=== PATIENT | female | born 1995 | race Caucasian/White ===

== ENCOUNTER 2018-03-18 00:58 | Day surgery (SDC) | payer OTHER ==
[2018-03-18 01:30] VITALS: BP 119/67; TEMP 99; BMI 35.6
[2018-03-18] MEDS ORDERED: Morphine 4 MG/ML VIAL SLOW IVP ONE (01:58)
[2018-03-18] MEDS ORDERED: HYDROcodone/Acetaminophen 5/325 mg Tablet PO PRN (02:10)
[2018-03-18 02:18] LABS: Bilirubin Negative (Negative); Blood, Urine Negative (Negative); Clarity CLEAR (Clear); Glucose, Urine (Dipstick) Negative (Negative); Leukocyte Negative (Negative); Nitrite Negative (Negative); Protein, Urine (Dipstick) Negative (Neg-Trace); Specific Gravity, Urine 1.006 (1.002-1.036); Urobilinogen 0.2 mg/dL (0.2-1.0); pH, Urine 6.5 (5.0-9.0)
--- NOTE | 2018-03-18 02:22 | PDOC.FPROB ---
FMR OB H&P: HPI - History of Present Illness Chief Complaint: LLQ pain History of Present Illness: Pt is 22 yo F @ 34.3 by 6.3 wk sono presenting with sharp pain in LLQ. Pt denies LOF, vaginal bleeding, or contractions, and states baby is moving well. Pain started 1 wk ago and comes and goes, never lasted more than 5 minutes. This pain has now lasted a few hours. Pt states pain is severe, 8-9/10. It is cramping /intermittent, radiates to left flank. She has not tried taking any medicines to relieve the pain. She saw her doctor earlier this week and he told her if the pain lasted to go to the hospital. FMR OB H&P: Current - Care : 2 Para: 1001 Gestational age: 34.3 wks Due date: 04/26/18 Dating Criteria: 6.3 wk sono - OB Labs Blood type: O RH: positive Antibody Screen: negative HIV: negative RPR: negative HepBsAg: negative Rubella: non-immune GBS: unknown H&H: 12.5/35.7 FMR OB H&P: History - Past Medical History PMH: asthma - OB History OB History: BV with this , s/p treatment Gestation DM - Surgical History Sx History: none - Social History Social History: Denies using tobacco, alcohol, or drugs. - Family History Family History: cancer in mother, unknown type FMR OB H&P: Medications - Current Home Medications: Medication Instructions Recorded Confirmed Type Vits96/Iron Fum/Folic 1 tablet PO DAILY 09/26/15 03/18/18 History [ Tablet] Cephalexin [Keflex] 500 mg PO BID #14 capsule 03/18/18 Rx HYDROcodone Bit/APAP 5/325 [Bonesteel 1 tab PO Q4HR PRN #15 tab 03/18/18 Rx 5/325] HYDROcodone Bit/APAP 5/325 [Bonesteel] 1 tab PO Q4H PRN #15 tab 03/18/18 Rx metFORMIN HCl 500 mg PO BID 03/18/18 03/18/18 History Allergies/Adverse Reactions: Allergies Allergy/AdvReac Type Severity Reaction Status Date / Time No Known Drug Allergies Allergy Verified 09/26/15 19:23 FMR OB H&P: ROS - Review of Systems General: denies: fever/chills, weight/appetite/sleep changes Eyes: denies: eye pain, vision changes ENT: denies: nasal congestion, rhinorrhea, sinus pain/pressure, ear pain, sore throat Cardiovascular: denies: chest pain, palpitation, edema Respiratory: reports: shortness of breath. denies: cough, congestion Gastrointestinal: reports: abdominal pain (LLQ), cramping. denies: bloating, nausea, vomiting, diarrhea, constipation, bright red blood Genitourinary (Female): reports: vaginal mass/sore (pelvic pain for past few months). denies: dysuria, hematuria, vaginal discharge, vaginal pain, vaginal bleeding Neurologic: denies: numbness, weakness Integumentary: denies: rash FMR OB H&P: Vital Signs - Maternal Vital signs: Vital Signs - First Documented Temp Pulse Resp BP 99.0 F 122 H 22 H 119/67 03/18/18 01:18 03/18/18 01:18 03/18/18 01:18 03/18/18 01:18 - Heart Tones Baseline: 135 Variability: moderate Acceleration: present Deceleration: absent Category: category 1 [place] contractions every: none FMR OB H&P: Physical Exam - Physical Exam General: NAD, awake, alert and oriented HEENT: normocephalic and atraumatic, PERRLA, MMM Neck: supple, no LAD Heart: RRR, normal S1/S2, no murmurs/rubs/gallops, pulses present, no edema General: CTAB, no respiratory distress, good air movement, no rales/rhonchi, no wheezing Abdomen: soft, gravid, bowel sound present, other (TTP in LLQ, + flank pain on left side) Musculoskeletal: pulses present Neurological: cranial nerves II through XII intact, strength +5 Skin: no rash, good tugor, capillary refill <2 seconds Psychiatric: intact recent and remote memory, good judgement and insight, normal mood and affect - Pelvic Exam Vulva: normal hair distribution FMR OB H&P: Results - Imaging Imaging: US kidneys shows hydronephrosis, R> L No urolithiasis visualized US Pelvic, transabdominal and transvaginal -Unable to visualize ovaries -No abruption seen FMR OB H&P: A/P - Problem List (1) Abdominal pain Status: Acute Code(s): R10.9 - UNSPECIFIED ABDOMINAL PAIN (2) related condition in third trimester Status: Acute Code(s): O26.93 - RELATED CONDITIONS, UNSPECIFIED, THIRD TRIMESTER (3) Gestational diabetes mellitus Status: Acute Code(s): O24.419 - GESTATIONAL DIABETES MELLITUS IN , UNSP CONTROL Discussion: Date/Time: 03/18/18221 Pt is 22 yo F @ 34.3 by 6.3 wk sono presenting with abdominal pain. #LLQ Abdominal pain in 3rd trimester -US showed hydronephrosis bilaterally, R>L. No urolithiasis visualized. No ovaries visualized on US. UA negative. -Her pain started last week, so although we were unable to visualize her ovaries this is probably not an ovarian torsion. - Presentation was similar to that of a kidney stone with LLQ pain and flank pain, but UA was negative and no stones were seen on US. Pt has no history of urolithiasis, and did not have nausea of vomiting with the pain. Does have moderate hydronephrosis, which may be physiologic with her . Her pain is resolved at this time with Bonesteel 5 mg. -Her pain is most likely round ligament pain. Will send home today with Keflex for possible urolithiasis and Bonesteel as needed for pain control. Instructed to stay adequately hydrated and follow up at [facility]. #GDM -Continue metformin #sIUP -FHTs reactive and reassuring at this time. Cat 1 FHTs -Follow up at Clinic for routine care. Yuki English, PGY-1 This H&P was discussed with Dr. Bhatt who agree with the above documentation and plan. Attending Addendum - Attending Addendum Date/Time: 03/18/18 7145 I personally evaluated the patient and discussed the management with Dr. English I agree with the History, Examination, Assessment and Plan documented above with any addition or exceptions noted below. 22 yo F @ 34.3 by 6.3 wk sono presenting for LLQ pain. Pain has been ongoing for several weeks but has had an acute worsening over the past few hours. She denies fevers, h/o trauma, vaginal bleeding, dysuria, abnormal vaginal discharge, diarrhea or constipation. On my examination she was well appearing, did not seem to be in significant pain (examined prior to norco administration) . FHTs 150s/moderate variability/accels present/no decels. No contractions. Abdomen is soft/nontender/no rebound or guarding. No CVA tenderness. Given mild left hydronephrosis and description of patient writhing in pain on presentation, nephrolithiasis would be high on differential. Suspect the mild left hydronephrosis is physiologic due to uterus but will treat for nephrolithiasis given clinical presentation. Pt is hydrating and tolerating PO so do not feel inpatient observation is necessary at this time. Strict precautions were reviewed. Has followup at [facility] this week.
[2018-03-18] MEDS ORDERED: Fentanyl 100 MCG/2 ML VIAL SLOW IVP ONE (05:20)
[2018-03-18] MEDS ORDERED: Melatonin 3 MG TAB PO PRN (05:21)
--- NOTE | 2018-03-18 07:58 | ULT ---
PRELIMINARY REPORT/[facility]/EMERGENTY AFTER-HOURS PROCEDURE US Retroperitoneal Complete CLINICAL HISTORY: 22 years old, female; Left lower quadrant (llq) abd pain, 34 weeks TECHNIQUE: Real-time ultrasound of the retroperitoneum (complete) with image documentation. COMPARISON: No relevant prior studies available. FINDINGS: The right kidney measures 13.4 cm longitudinally. The left kidney measures 11.6 cm longitudinally. Normal renal cortical echogenicity. Moderate right hydronephrosis. Mild left hydronephrosis. No calcified renal stones. No perinephric fluid collections. Prevoid bladder volume is 46 cc. Normal bladder wall thickness. IMPRESSION: Moderate right hydronephrosis. Mild left hydronephrosis. Thank you for allowing us to participate in the care of your patient. Dictated and Authenticated by: Stefan Marks MD 03/18/2018 3:46 AM Central Time ([place] & [place]) RENAL SONOGRAM: Date: 03-18-18 Performed on emergency basis at 0220 hours. History: Left flank pain. 34-week . FINDINGS: I agree with the preliminary report by Dr. Marks from [facility]. Moderate right hydronephr osis. Mild left hydronephrosis. No shadowing stones are visible. Code QA POS: [facility]
--- NOTE | 2018-03-18 08:03 | ULT ---
PRELIMINARY REPORT/[facility]/EMERGENTY AFTER-HOURS PROCEDURE US Uterus, Limited CLINICAL HISTORY: 22 years old, female; lower abdominal or pelvic pain; third trimester gestational age: 34w3 d; worsening intermittent LLQ pain. R/O torsion TECHNIQUE: Real-time ultrasound of the maternal uterus (limited) with image documentation. COMPARISON: US - Renal 2018-03-18 02:19 FINDINGS: Gestational age: 34 weeks, 3 days. Placental position: Anterior. No placenta previa. ILYA: Normal. presentation: Vertex. heart rate: 122 bpm. Cervical length: 3.2 cm. The ovaries are never clearly visualized. IMPRESSION: 1. Single live intrauterine with gestational age of 34 weeks, 3 days. 2. heart rate equals 122 bpm. 3. Normal amniotic fluid volume. 4. No placenta previa. 5. The ovaries are never clearly visualized. Thank you for allowing us to participate in the care of your patient. Dictated and Authenticated by: Stefan Marks MD 03/18/2018 3:51 AM Central Time ([place] & [place]) OBSTETRIC SONOGRAM: 03/18/2018 0253 HOURS HISTORY: Third trimester . Pelvic pain. Exam performed on an emergency basis. FINDINGS: Single viable intrauterine gestation, at 34 weeks 3 days. No evidence of placenta previa. Ovaries n ot well visualized. Agree with the preliminary report by Dr. Marks from [facility]. POS: [facility]
== END 2018-03-18 04:15 | disposition home or self-care (01) ==
LOC: L&D/OP 00:58
PROVIDERS: ATTEND Family Medicine
DX: O99.89 Other specified diseases and conditions complicating pregnancy, childbirth and the puerperium (principal); R10.32 Left lower quadrant pain; Z79.84 Long term (current) use of oral hypoglycemic drugs; Z3A.34 34 weeks gestation of pregnancy
CPT/HCPCS: 76770; 76856; 81003; 87480; 87491; 87510; 87591; 87660; 99285

== ENCOUNTER 2018-04-19 05:30 | Inpatient (IN) | payer OTHER ==
[2018-04-19 06:39] VITALS: BMI 35.4
[2018-04-19] MEDS ORDERED: NS w/ Oxytocin 10 units 500 ML ONE (07:23)
[2018-04-19] MEDS ORDERED: Promethazine HCl 25 MG/ML VIAL IM PRN ×2 (07:25→16:06)
[2018-04-19] MEDS ORDERED: Ibuprofen 800 MG TAB PO PRN (07:25)
[2018-04-19] MEDS ORDERED: Lidocaine 1% (PF) 30 ML VIAL SC PRN (07:25)
[2018-04-19] MEDS ORDERED: Ondansetron HCl/PF 4 MG/2 ML Vial IVP PRN ×2 (07:25→16:06)
[2018-04-19] MEDS ORDERED: NS / Oxytocin 40 units/1000ml 1,000 ML IV PRN (07:25)
[2018-04-19] MEDS ORDERED: Docusate 100 MG CAP PO PRN (07:25)
[2018-04-19] MEDS ORDERED: Acetaminophen/Codeine 30-300mg Tablet PO PRN (07:25)
[2018-04-19 07:39] LABS: Hemoglobin 11.4 g/dL (12.0-16.0); Mean Corpuscular HGB CONC 32.4 g/dL (32.0-36.0); Mean Corpuscular Volume 86.4 fL (78.0-98.0); Mean Platelet Volume 10.1 fL (7.4-10.4); Platelet Count 184 thou/uL (130-400); RBC Distribution Width 13.2 % (11.5-14.5); Red Blood Cell (RBC) Count 4.05 mill/uL (4.20-5.40); White Blood Cell (WBC) Count 10.2 thou/uL (4.8-10.8)
[2018-04-19 08:20] LABS: HBSAg Index 0.15 S/CO (0-0.99); Hep B Surf Ag Non-Reactive S/CO (NonReactive); Syphilis Antibody Nonreactive (Nonreactive); Syphilis Antibody Index 0.04 S/CO (<1.00 Non-Reactive)
[2018-04-19 08:56] LABS: Free T4 (Free Thyroxine) 0.86 ng/dL (0.70-1.48); Thyroid Stimulating Hormone 4.939 uIU/mL (0.35-4.94)
--- NOTE | 2018-04-19 09:05 | PDOC.LDHP ---
Labor and Delivery H&P Chief complaint: other HPI: 22 at 39.0 here for medically indicated IOL due to GDMA2. She endorses FM, denies VB, LOF, or CTX. Current gestational age (weeks): 39 (39.0) Due date: 04/26/18 Dating criteria: first trimester ultrasound Grav: 2 Para: 1 OB History Details: 1. 10/05/15: , 39 wks, F, mild shoulder dystocia Current complications: gestational diabetes Past Medical History: asthma, GDMA2 Current medications: other (metformin 500mg BID) Social history: none - Physical Exam Vital signs reviewed and normal: yes - Vaginal Exam cm dilated: 3 Effacement: 50% (60) Station: -2 - OB Labs Blood type: O RH: positive Antibody Screen: negative HIV: negative RPR: negative HEPSAg: negative 1 hour GCT: positive (212) GBS: negative Rubella: non-immune - Assessment L&D Assessment: medically indicated induction - Plan Plan: admit to L&D, labor augmentation if indicated -: 22 yo at 39.0 here for medically indicated IOL due to uncontrolled GDMA2 1. sIUP, term, IOL -FHT: Cat I -CTX: none present at this time -SVE: 3/-2 @0700, Hernandez 8 -Will start pitocin protocol at this time -Pt. desires epidural, consult placed 2. GDMA2 -POC 100 -Continue accuchecks q1-2hr, can space out if controlled -Insulin SS, prn 3. Hx Asthma, controlled -inhaler used twice during -aware, continue to monitor 4. Sublinical hypothyroidism during -First TSH was 4.0 w/ ft3/t4 WNL, most recent TSH 2.9 (labs from 02/18/18) -No medication initiated -Ordered TSH/fT3/fT4 for recent update to assess risk for neurodevelopment issues 5. Rubella non-immune -Will plan for MMR 6. Maternal obesity -BMI 35 -Hx of LGA baby, most recent sono showed EFW, 72%, 3303g Discussed with Dr. Zaragoza <Carrie Robertson - Last Filed: 04/19/18 09:03> <Lenin Zaragoza - Last Filed: 09/10/18 09:58> Allergies/Adverse Reactions: Allergies Allergy/AdvReac Type Severity Reaction Status Date / Time No Known Drug Allergies Allergy Verified 09/26/15 19:23 Attending Addendum - Attending Addendum Date/Time: 04/19/1857 I personally evaluated the patient and discussed the management with Dr. Robertson. I agree with the History, Examination, Assessment and Plan documented above with any addition or exceptions noted below. <Lenin Zaragoza - Last Filed: 04/19/18 09:58>
[2018-04-19] MEDS ORDERED: Dextrose 5% in Water 1,000 ML IV PRN (09:21)
[2018-04-19] MEDS ORDERED: HumaLOG 300 UNITS/3 ML VIAL SC PRN (09:21)
[2018-04-19] MEDS ORDERED: Dextrose 50% Abboject 50 ML SYRINGE SLOW IVP PRN (09:21)
[2018-04-19] MEDS ORDERED: DISCONTINUE ALL PREVIOUS NARCOTICS FS SCH (10:15)
--- NOTE | 2018-04-19 11:07 | PDOC.LDPN ---
Labor & Delivery Progress Note - Subjective Subjective: comfortable, vaginal pressure - Objective Vital signs reviewed and normal: yes General: NAD Uterine fundus: non tender Dilation: 4 Effacement: 75% (70) Station: -2 FHT: category 1 - Assessment (1) Intrauterine Code(s): Z34.90 - ENCNTR FOR SUPRVSN OF NORMAL , UNSP, UNSP TRIMESTER Current Visit: Yes Status: Acute (2) Gestational diabetes mellitus Code(s): O24.419 - GESTATIONAL DIABETES MELLITUS IN , UNSP CONTROL Current Visit: Yes Status: Acute (3) Rubella non-immune status, antepartum Code(s): O99.89 - OTH DISEASES AND CONDITIONS COMPL PREG/CHLDBRTH; Z28.3 - UNDERIMMUNIZATION STATUS Current Visit: Yes Status: Acute (4) History of shoulder dystocia in prior Code(s): Z87.59 - PERSONAL HISTORY OF COMP OF PREG, CHLDBRTH AND THE PUERP Current Visit: Yes Status: Acute (5) Obesity Code(s): E66.9 - OBESITY, UNSPECIFIED Current Visit: Yes Status: Acute (6) Subclinical hypothyroidism Code(s): E03.9 - HYPOTHYROIDISM, UNSPECIFIED Current Visit: Yes Status: Acute -: 22 yo at 39.0 here for medically indicated IOL due to uncontrolled GDMA2 1. sIUP, term, IOL -FHT: Cat I -CTX: q8-9min -SVE: /-2 @1100 -Pitocin at 10, continue per protocol -Pt. plans for epidural 2. GDMA2 -POC 80-90s -Continue accuchecks q2hr -Insulin SS, prn 3. Hx Asthma, controlled -inhaler used twice during -aware, continue to monitor 4. Sublinical hypothyroidism during -First TSH was 4.0 w/ ft3/t4 WNL, most recent TSH 2.9 (labs from 02/18/18) -No medication initiated -TSH elevated, ft3/t4 WNL 5. Rubella non-immune -Will plan for MMR 6. Maternal obesity -BMI 35 -Hx of LGA baby, most recent sono showed EFW, 72%, 3303g
--- NOTE | 2018-04-19 14:06 | PDOC.LDPN ---
Labor & Delivery Progress Note - Subjective Subjective: comfortable, vaginal pressure - Objective Vital signs reviewed and normal: yes General: NAD, resting Uterine fundus: non tender Dilation: 4.5 Effacement: 75% Station: -2 FHT: category 1 [place] contractions every: 2-3min - Assessment (1) Intrauterine Code(s): Z34.90 - ENCNTR FOR SUPRVSN OF NORMAL , UNSP, UNSP TRIMESTER Current Visit: Yes Status: Acute (2) Gestational diabetes mellitus Code(s): O24.419 - GESTATIONAL DIABETES MELLITUS IN , UNSP CONTROL Current Visit: Yes Status: Acute (3) Rubella non-immune status, antepartum Code(s): O99.89 - OTH DISEASES AND CONDITIONS COMPL PREG/CHLDBRTH; Z28.3 - UNDERIMMUNIZATION STATUS Current Visit: Yes Status: Acute (4) History of shoulder dystocia in prior Code(s): Z87.59 - PERSONAL HISTORY OF COMP OF PREG, CHLDBRTH AND THE PUERP Current Visit: Yes Status: Acute (5) Obesity Code(s): E66.9 - OBESITY, UNSPECIFIED Current Visit: Yes Status: Acute (6) Subclinical hypothyroidism Code(s): E03.9 - HYPOTHYROIDISM, UNSPECIFIED Current Visit: Yes Status: Acute -: 22 yo at 39.0 here for medically indicated IOL due to uncontrolled GDMA2 1. sIUP, term, latent labor -FHT: Cat I -CTX: q2-3min -SVE: 4.5/70/-2 @1100 -Pitocin at 18, continue per protocol -Pt. plans for epidural -Continue with active management of latent labor 2. GDMA2 -POC 80-90s -Continue accuchecks q2hr -Insulin SS, prn 3. Hx Asthma, controlled -inhaler used twice during -aware, continue to monitor 4. Sublinical hypothyroidism during -First TSH was 4.0 w/ ft3/t4 WNL, most recent TSH 2.9 (labs from 02/18/18) -No medication initiated -TSH elevated, ft3/t4 WNL 5. Rubella non-immune -Will plan for MMR 6. Maternal obesity -BMI 35 -Hx of LGA baby, most recent sono showed EFW, 72%, 3303g
[2018-04-19] MEDS: Bupivacaine 0.5% 20 ML, fentaNYL Citrate/PF 400 MCG in Sodium Chloride 0.9% 72 ML EPIDURAL SCH ×2 (16:05→23:30)
[2018-04-19] MEDS ORDERED: Eucerin (Mineral Oil/Petrolatum,White) 30 gm Jar TOP PRN (16:06)
[2018-04-19] MEDS ORDERED: diphenhydrAMINE 50 MG/ML VIAL IVP PRN (16:06)
[2018-04-19] MEDS ORDERED: Lactated Ringer's 500 ML IV PRN (16:06)
[2018-04-19] MEDS ORDERED: ePHEDrine/0.9% NaCl/PF SYRINGE 50 mg/10 ml SLOW IVP PRN (16:06)
[2018-04-19] MEDS ORDERED: Naloxone HCl 0.4 mg/ml Vial IVP PRN ×2 (16:06)
[2018-04-19] MEDS ORDERED: fentaNYL Citrate/PF 400 MCG, Bupivacaine 0.5% 20 ML in Sodium Chloride 0.9% 72 ML EPIDURAL SCH (16:15)
[2018-04-19] MEDS ORDERED: Communication Order-Pharmacy FS SCH (16:15)
--- NOTE | 2018-04-19 16:40 | PDOC.LDPN ---
Labor & Delivery Progress Note - Subjective Subjective: comfortable, vaginal pressure - Objective Vital signs reviewed and normal: yes General: NAD Dilation: 5 Effacement: 75% Station: -2 FHT: category 1 [place] contractions every: 2-3min - Assessment (1) Intrauterine Code(s): Z34.90 - ENCNTR FOR SUPRVSN OF NORMAL , UNSP, UNSP TRIMESTER Current Visit: Yes Status: Acute (2) Gestational diabetes mellitus Code(s): O24.419 - GESTATIONAL DIABETES MELLITUS IN , UNSP CONTROL Current Visit: Yes Status: Acute (3) Rubella non-immune status, antepartum Code(s): O99.89 - OTH DISEASES AND CONDITIONS COMPL PREG/CHLDBRTH; Z28.3 - UNDERIMMUNIZATION STATUS Current Visit: Yes Status: Acute (4) History of shoulder dystocia in prior Code(s): Z87.59 - PERSONAL HISTORY OF COMP OF PREG, CHLDBRTH AND THE PUERP Current Visit: Yes Status: Acute (5) Obesity Code(s): E66.9 - OBESITY, UNSPECIFIED Current Visit: Yes Status: Acute (6) Subclinical hypothyroidism Code(s): E03.9 - HYPOTHYROIDISM, UNSPECIFIED Current Visit: Yes Status: Acute -: 22 yo at 39.0 here for medically indicated IOL due to uncontrolled GDMA2 1. sIUP, term, latent labor -FHT: Cat I -CTX: q2-3min -SVE: /-2 @1100 -Pitocin at 20, continue per protocol -Epidural placed -Continue with active management of latent labor 2. GDMA2 -POC 70s-90s -Continue accuchecks q2hr -Insulin SS, prn 3. Hx Asthma, controlled -inhaler used twice during -aware, continue to monitor 4. Sublinical hypothyroidism during -First TSH was 4.0 w/ ft3/t4 WNL, most recent TSH 2.9 (labs from 02/18/18) -No medication initiated -TSH elevated, ft3/t4 WNL 5. Rubella non-immune -Will plan for MMR 6. Maternal obesity -BMI 35 -Hx of LGA baby, most recent sono showed EFW, 72%, 3303g
[2018-04-19] MEDS: Lactated Ringer's 1,000 ML IV SCH (17:00)
--- NOTE | 2018-04-19 19:12 | PDOC.LDPN ---
Labor & Delivery Progress Note - Subjective Subjective: comfortable - Objective Vital signs reviewed and normal: yes General: NAD, resting Dilation: 5 Effacement: 75% (70) Station: -1 FHT: category 1 (145/mod/pos accel/no decel) [place] contractions every: 2-3 min Plan: continue plan of care -: 22 yo at 39.0 here for medically indicated IOL due to uncontrolled GDMA2 1. sIUP, term, latent labor -FHT: Cat I -CTX: q2-3min -SVE: /-1 @1900 -Pitocin at 20, continue per protocol -Epidural placed -Continue with active management of latent labor 2. GDMA2 -POC 70s-90s, last BG check 68 -Continue accuchecks q2hr -Insulin SS, prn 3. Hx Asthma, controlled -inhaler used twice during -aware, continue to monitor 4. Sublinical hypothyroidism during -First TSH was 4.0 w/ ft3/t4 WNL, most recent TSH 2.9 (labs from 02/18/18) -No medication initiated -TSH elevated, ft3/t4 WNL 5. Rubella non-immune -Will plan for MMR 6. Maternal obesity -BMI 35 -Hx of LGA baby, most recent sono showed EFW, 72%, 3303g <Danita Parker - Last Filed: 04/19/18 19:11> Attending Addendum - Attending Addendum Date/Time: 04/19/181918 I personally evaluated the patient and discussed the management with Dr. Parker I agree with the History, Examination, Assessment and Plan documented above with any addition or exceptions noted below. 22 yo female at 39.0 wks by 6.3 wk sono here for IOL 2/2 uncontrolled GDM, A2 FHT cat [address] Continues to make slow cervical change. Continue pit per protocol. Glucose stable. No need for insulin or D5W. LGA fetus with hx of mild shoulder dystocia. Maternal obesity with BMI of 35. Allow patient to labor down. Have team ready at delivery for possible shoulder. Needs rubella pp. GBS negative. Repeat exam in 2 hours. ABrayMD <Adriana Nguyen - Last Filed: 04/20/18 19:23>
[2018-04-19] MEDS ORDERED: NS w/ Oxytocin 10 units 500 ML IV SCH (19:45)
--- NOTE | 2018-04-19 21:39 | PDOC.LDPN ---
Labor & Delivery Progress Note - Subjective Subjective: comfortable, other (Nausea) - Objective Vital signs reviewed and normal: yes General: NAD Dilation: 6 Effacement: 75% (80) Station: -1 FHT: variable decelerations (130/minimal variabilitys/pos accel/ variable decel , no late decel) [place] contractions every: 3-5 min Plan: continue plan of care -: 22 yo at 39.0 here for medically indicated IOL due to uncontrolled GDMA2 1. sIUP, term, active labor -FHT: Cat II -CTX: q3-5min -SVE: /-1 @2109 -Pitocin at 20, continue per protocol -Epidural placed -Continue with active management of labor -AROM offered, patient refused 2. GDMA2 -POC 70s-90s -Continue accuchecks q2hr -Insulin SS, prn 3. Hx Asthma, controlled -inhaler used twice during -[place], continue to monitor 4. Sublinical hypothyroidism during -First TSH was 4.0 w/ ft3/t4 WNL, most recent TSH 2.9 (labs from 02/18/18) -No medication initiated -TSH elevated, ft3/t4 WNL 5. Rubella non-immune -Will plan for MMR 6. Maternal obesity -BMI 35 -Hx of LGA baby, most recent sono showed EFW, 72%, 3303g <Danita Parker - Last Filed: 04/19/18 21:37> Attending Addendum - Attending Addendum Date/Time: 04/19/182123 I personally evaluated the patient and discussed the management with Dr. Parker I agree with the History, Examination, Assessment and Plan documented above with any addition or exceptions noted below. 22 yo female at 39.0 wks by 6.3 wk sono here for IOL 2/2 uncontrolled GDM, A2 FHT cat 1 to reassuring cat 2 during sleep cycles Epidural in place. Pain controlled. Continues to make slow cervical change. Continue pit per protocol. Now 6 cm. Discussed possible AROM but patient declined. Glucose stable. No need for insulin or D5W. LGA fetus with hx of mild shoulder dystocia. Maternal obesity with BMI of 35. Allow patient to labor down. Have team ready at delivery for possible shoulder. Needs rubella pp. GBS negative. Asthma is well controlled and only related to exercise. Repeat exam in 2 hours. ABrmyleneMD <Adriana Nguyen - Last Filed: 04/20/18 19:25>
--- NOTE | 2018-04-20 01:48 | PDOC.LDPN ---
Labor & Delivery Progress Note - Objective Dilation: 10 Effacement: 100% Station: 1+ FHT: category 1 Plan: continue plan of care -: 22 yo at 39.0 here for medically indicated IOL due to uncontrolled GDMA2 1. sIUP, term, active labor -FHT: Cat I -CTX: q3 min -SVE: Complete -Pitocin at 20, continue per protocol -Epidural placed -will prepare for delivery 2. GDMA2 -POC 70s-90s -Continue accuchecks q2hr -Insulin SS, prn 3. Hx Asthma, controlled -inhaler used twice during -[place], continue to monitor 4. Sublinical hypothyroidism during -First TSH was 4.0 w/ ft3/t4 WNL, most recent TSH 2.9 (labs from 02/18/18) -No medication initiated -TSH elevated, ft3/t4 WNL 5. Rubella non-immune -Will plan for MMR 6. Maternal obesity -BMI 35 -Hx of LGA baby, most recent sono showed EFW, 72%, 3303g <Danita Parekr - Last Filed: 04/20/18 01:48> Attending Addendum - Attending Addendum Date/Time: 04/20/18 0126 I personally evaluated the patient and discussed the management with Dr. Parker I agree with the History, Examination, Assessment and Plan documented above with any addition or exceptions noted below. 22 yo female at 39.1 wks by 6.3 wk sono here for IOL 2/2 uncontrolled GDM, A2 FHT cat [address] Pain controlled. Now complete and +2. AROM. Glucose stable. No need for insulin or D5W. LGA fetus with hx of mild shoulder dystocia. Maternal obesity with BMI of 35. Patient now labored down without complications. Pelvis appears adequate for delivery. Have team ready at delivery for possible shoulder. Needs rubella pp. GBS negative. Asthma is well controlled and only related to exercise. Monitor for risk for pph ABrayMD <Adriana Nguyen - Last Filed: 04/20/18 19:28>
[2018-04-20] MEDS: NS / Oxytocin 40 units/1000ml 1,000 ML IV PRN ×2 (02:16→03:24)
[2018-04-20] MEDS ORDERED: Misoprostol 200 MCG TAB ONE (02:18)
--- NOTE | 2018-04-20 02:53 | PDOC.OPDEL ---
OB Operative/Delivery Note - Additional Findings/Plan Compilations/Other Findings: TLGA vigorous male infant delivered in OA presentation. Body cord noted and delivered through. PP hemorrhage pending QBL. 1st degree midline perineal repaired with 3-0 vicryl with a figure of 8 stitch. S/p pitocin and 800 mcg cytotec. Placenta delivered intact with 3VC noted in [facility] presentation. <Adri King - Last Filed: 04/20/18 02:55> Delivery Dr/Surgeon: Dr. King, Dr. Nguyen, Dr. Parker Pre-Delivery Diagnosis: elective induction Procedure/Post Delivery Dx: spontaneous vaginal delivery Weeks gestation: 39 (39.1) Anesthesia: epidural - Findings A Sex: male Weight: 4.99 kg - 1 min: 8 - 5 min: 9 - Additional Findings/Plan Placenta delivered: spontaneous Repaired Obstetrical Laceration: 1st degree Post delivery plan: routine recovery <Danita Parker - Last Filed: 04/20/18 05:00> Attending Addendum - Attending Addendum Date/Time: 04/20/18 0328 I personally evaluated the patient and discussed the management with Dr. Parker and Dr. King I agree with the History, Examination, Assessment and Plan documented above with any addition or exceptions noted below. I was present and participated in procedure. 22 yo now female s/p on 04/20/18 at 0208. complicated by: LGA, maternal obesity, hx of shoulder dystocia and LGA fetus, uncontrolled A2, GDM, Rubella nonimmune, Exercise induced asthma Delivery complicated by: PPH, 1st degree perineal laceration s/p repair Male infant. 11 lbs. APGARS 8/9. Body cord x1. Continue routine pp care. Needs MMR prior to d/c. Repeat 2 hour gtt at 6 wks pp. Encourage breast feeding. Monitor for s/sx of anemia. Monitor infant glucose. ABrayMD <Adriana Nguyen - Last Filed: 04/20/18 19:33>
[2018-04-20] MEDS ORDERED: Milk Of Magnesia 30 ML UDCUP PO PRN (03:02)
[2018-04-20] MEDS ORDERED: Benzocaine/Menthol 20-0.5% 60 ML CAN TOP PRN (03:02)
[2018-04-20] MEDS ORDERED: Methylergonovine 0.2 MG/ML VIAL IM PRN (03:02)
[2018-04-20] MEDS ORDERED: Lanolin Ointment 7 GM TUBE TOP PRN (03:02)
[2018-04-20] MEDS ORDERED: Preparation H Ointment 28 GM TUBE PR PRN (03:02)
[2018-04-20] MEDS ORDERED: Bisacodyl 10 MG SUPP PR PRN (03:02)
[2018-04-20] MEDS: Lactated Ringer's 1,000 ML IV SCH ×3 (03:53→18:24)
[2018-04-20] MEDS ORDERED: Measles/Mumps/Rubella 10 MCG/0.5 ML VIAL SC ONE (06:07)
[2018-04-20] MEDS: Ibuprofen 800 MG TAB PO SCH ×2 (06:45→15:08)
[2018-04-20] MEDS: Prenatal Vitamin 1 TAB PO SCH (09:00)
[2018-04-20] MEDS: Docusate Calcium (SURFAK) 240 MG CAP PO SCH ×2 (09:00→21:09)
[2018-04-20] MEDS ORDERED: Adacel (T-DAP) 0.5 ML VIAL IM ONE (09:00)
[2018-04-20] MEDS ORDERED: Sodium Chloride 0.9% 0 ML ONE (11:14)
--- NOTE | 2018-04-20 11:22 | DN-2 ---
DELIVERING PHYSICIAN: Dr. Elena Carter ATTENDING PHYSICIAN: Dr. Adriana Nguyen PROCEDURE: Spontaneous vaginal delivery. ANESTHESIA: Epidural. ESTIMATED BLOOD LOSS: QBL 500 mL, EBL 1500 mL. POSTOPERATIVE DIAGNOSES: 1. Term intrauterine in labor. 2. Gestational diabetes mellitus A2. 3. Subclinical hypothyroidism. 4. Rubella nonimmune. 5. History of shoulder dystocia. 6. Asthma, exercise induced POSTOPERATIVE DIAGNOSES: 1. Term intrauterine , delivered. 2. hemorrhage. 3. Gestational diabetes mellitus A2. 4. Subclinical hypothyroidism. 5. Rubella nonimmune. 6. History of shoulder dystocia. 7. Asthma. INDICATIONS: A 22-year-old female, , who presents to L&D for induction of labor due to history of shoulder dystocia. DELIVERY NOTE: This is a 22-year-old female, G2, P1 now 2 at 39.1 weeks who delivered a viable male infant at 2:08 a.m. Following an antepartum course complicated by GDM A2, a vigorous male was delivered over an intact perineum in the OA position. Anterior shoulder and then remainder of the body delivered. Body cord present and was delivered through then reduced. Cord was clamped, cut , and cord blood collected. Placenta delivered intact in the [facility] presentation with a 3-vessel cord noted. Fundal massage was performed and the fundus was mostly firm. The cervix and vagina were inspected and a first- degree midline perineal laceration was found and repaired with 3-0 Vicryl with a [id number] stitch. Complicated by hemorrhage with quantitative blood loss of 500, EBL 1500. The patient given Pitocin and 800 mcg of Cytotec immediately after delivery. Infant went to nursery in good condition for routine care. Apgars were 8 and 9 at 1 and 5 minutes respectively. The patient tolerated delivery well and went to after routine recovery. MTDD
--- NOTE | 2018-04-20 11:34 | PDOC.PP ---
Post Progress Note Post Day #: 1 Subjective: Doing well, no pain, mild dizziness with exertion. Per nurse, has soaked through two pads since delivery. Able to ambulate, void, stool. PO intake tolerated: yes Flatus: yes Ambulation: yes Vital Signs (12 hours) Temp Pulse Resp BP 04/20/18 07:35 98.5 F 69 20 101/53 L Weight Weight 96.615 kg - Physical Examination General: NAD Cardiovascular: RRR Respiratory: non-labored breathing Abdominal: + bowel sounds, no distention, appropriately TTP Neurological: no gross focal deficits Psychiatric: A&Ox3, normal affect Result Diagrams: 04/19/18 06:50 Additional Labs: Post Labs Blood Type O POSITIVE 04/19/18 06:50 Hep Bs Antigen Non-Reactive S/CO (NonReactive) 04/19/18 06:50 (1) Intrauterine Code(s): Z34.90 - ENCNTR FOR SUPRVSN OF NORMAL , UNSP, UNSP TRIMESTER Status: Acute (2) Gestational diabetes mellitus Code(s): O24.419 - GESTATIONAL DIABETES MELLITUS IN , UNSP CONTROL Status: Acute (3) Rubella non-immune status, antepartum Code(s): O99.89 - OTH DISEASES AND CONDITIONS COMPL PREG/CHLDBRTH; Z28.3 - UNDERIMMUNIZATION STATUS Status: Acute (4) History of shoulder dystocia in prior Code(s): Z87.59 - PERSONAL HISTORY OF COMP OF PREG, CHLDBRTH AND THE PUERP Status: Acute (5) Obesity Code(s): E66.9 - OBESITY, UNSPECIFIED Status: Acute (6) Subclinical hypothyroidism Code(s): E03.9 - HYPOTHYROIDISM, UNSPECIFIED Status: Acute - Assessment/Plan 22 yo now s/p of LGA M with 1st degree laceration, GDMA2 and PPH. 1. s/p with 1st degree laceration & PPH -no reported pain, vital signs stable -Pending H/H, transfuse if Hb <7 2. GDMA2 -unable to check FBG this AM since had already eatn, but will check 2hr postprandial glucose today -order placed for FBG in AM -If glucoses are elevated above respective ranges, consider restarting metformin w/ continued outpt f/u for DM 3. rubella non-immune -MMR vaccine given 4. subclinical hypothyroidism -will f/u in outpt setting 5. maternal obesity -mom plans on breast feeding -plan to drug and alcohol counselor on diet and exercise as tolerated <Carrie Robertson - Last Filed: 04/20/18 11:37> Vital Signs (12 hours) Temp Pulse Resp BP 04/20/18 12:13 97.8 F 121 H 20 97/55 L 04/20/18 07:35 98.5 F 69 20 101/53 L Weight Weight 96.615 kg Result Diagrams: 04/20/18 10:12 Additional Labs: Post Labs Blood Type O POSITIVE 04/19/18 06:50 Hep Bs Antigen Non-Reactive S/CO (NonReactive) 04/19/18 06:50 <Lenin Zaragoza - Last Filed: 04/20/18 13:25> Attending Addendum - Attending Addendum Date/Time: 04/20/18 1323 I personally evaluated the patient and discussed the management with Dr. Robertson. I agree with the History, Examination, Assessment and Plan documented above with any addition or exceptions noted below. Patient doing well. Continue care. <Lenin Zaragoza - Last Filed: 04/20/18 13:25>
[2018-04-20] MEDS: Ferrous Sulfate 325 MG TAB PO SCH ×2 (12:01→18:25)
[2018-04-20 12:18] LABS: Hemoglobin 8.2 g/dL (12.0-16.0)
[2018-04-20 14:37] LABS: Hemoglobin 8.3 g/dL (12.0-16.0); Mean Corpuscular HGB CONC 33.3 g/dL (32.0-36.0); Mean Corpuscular Hemoglobin 29.3 pg (27.0-31.0); Mean Platelet Volume 11.3 fL (7.4-10.4); Platelet Count 163 thou/uL (130-400); RBC Distribution Width 13.3 % (11.5-14.5); Red Blood Cell (RBC) Count 2.82 mill/uL (4.20-5.40); White Blood Cell (WBC) Count 14.5 thou/uL (4.8-10.8)
[2018-04-20] MEDS ORDERED: Sodium Chloride 0.9% 1,000 ML IV SCH (17:45)
[2018-04-20 18:04] LABS: Hemoglobin 8.3 g/dL (12.0-16.0)
[2018-04-20] MEDS: Acetaminophen 325 MG TAB PO PRN (18:14)
[2018-04-20] MEDS ORDERED: Ibuprofen 600 MG TAB PO PRN (20:16)
[2018-04-20] MEDS ORDERED: traMADol HCl 50 MG TAB PO SCH (21:00)
[2018-04-20] MEDS ORDERED: Ibuprofen 800 MG TAB PO SCH (22:00)
[2018-04-21] MEDS: Acetaminophen 325 MG TAB PO PRN ×2 (03:51→11:37)
[2018-04-21] MEDS: Ibuprofen 800 MG TAB PO SCH ×2 (05:37→13:55)
[2018-04-21 08:03] VITALS: TEMP 98.5
--- NOTE | 2018-04-21 08:21 | PDOC.PP ---
Post Progress Note Post Day #: 1 Subjective: Feeling well. No sx of anemia. Pain well controlled except for cramping when PO intake tolerated: yes Flatus: yes Ambulation: yes Vital Signs (12 hours) Temp Pulse Resp BP BP 04/21/18 08:00 98.5 F 81 20 99/53 L 04/21/18 05:30 103/51 L 18 03:51 97.9 F 84 18 94/55 L 04/21/18 00:05 97.6 F 86 20 101/50 L Weight Weight 96.615 kg - Physical Examination General: NAD Cardiovascular: no m/r/g, RRR Respiratory: clear to auscultation bilaterally Abdominal: + bowel sounds, lochia (< 1 pad over 24h), no distention, appropriately TTP Fundus firm & at: umbilicus Extremities: negative homans (B) Skin: no rash Neurological: no gross focal deficits Psychiatric: A&Ox3, normal affect Result Diagrams: 04/20/18 17:55 Additional Labs: Post Labs Blood Type O POSITIVE 04/19/18 06:50 Hep Bs Antigen Non-Reactive S/CO (NonReactive) 04/19/18 06:50 (1) Term of infant Code(s): Z37.0 - SINGLE LIVE Status: Acute - Assessment/Plan 22 yo now s/p of LGA M with 1st degree laceration, A2GDM and PPH. 1. s/p with 1st degree laceration & PPH -PPD #1 -pain well controlled -H&H stable 2. A2GDM - 6 week 2 hour GTT 3. rubella non-immune -MMR vaccine given 4. subclinical hypothyroidism -will f/u in outpt setting 5. maternal obesity -mom plans on breast feeding -recommend steady controlled weight loss 6. PPH -H&H stable -asymptomatic -will rx iron and miralax <Adri King - Last Filed: 04/21/18 08:21> Vital Signs (12 hours) Temp Pulse Resp BP BP 04/21/18 11:48 98.5 F 88 18 108/52 L 04/21/18 08:00 98.5 F 81 20 99/53 L 04/21/18 05:30 103/51 L 04/21/18 03:51 97.9 F 84 18 94/55 L Weight Weight 96.615 kg Result Diagrams: 04/20/18 17:55 Additional Labs: Post Labs Blood Type O POSITIVE 04/19/18 06:50 Hep Bs Antigen Non-Reactive S/CO (NonReactive) 04/19/18 06:50 <Lenin Zaragoza - Last Filed: 04/21/18 12:17> Attending Addendum - Attending Addendum Date/Time: 04/21/18 1217 I personally evaluated the patient and discussed the management with Dr. diego. I agree with the History, Examination, Assessment and Plan documented above with any addition or exceptions noted below. <Lenin Zaragoza - Last Filed: 04/21/18 12:17>
[2018-04-21] MEDS: Docusate Calcium (SURFAK) 240 MG CAP PO SCH (10:00)
[2018-04-21] MEDS: Prenatal Vitamin 1 TAB PO SCH (10:00)
[2018-04-21] MEDS: Ferrous Sulfate 325 MG TAB PO SCH (10:00)
[2018-04-21 11:49] VITALS: BP 108/52
== END 2018-04-21 16:45 | disposition home or self-care (01) | DRG 774 ==
LOC: L&D 06:10 → 3SW 04-20 06:01
PROVIDERS: ADMIT Family Medicine; ATTEND Family Medicine
PROC: 10E0XZZ Delivery of Products of Conception, External Approach (ICD-10-PCS; principal; 2018-04-19)
PROC: 3E033VJ Introduction of Other Hormone into Peripheral Vein, Percutaneous Approach (ICD-10-PCS; 2018-04-19)
PROC: 0HQ9XZZ Repair Perineum Skin, External Approach (ICD-10-PCS; 2018-04-19)
DX: O24.429 Gestational diabetes mellitus in childbirth, unspecified control (principal); O72.1 Other immediate postpartum hemorrhage; Z3A.39 39 weeks gestation of pregnancy; Z37.0 Single live birth; J45.909 Unspecified asthma, uncomplicated; O99.513 Diseases of the respiratory system complicating pregnancy, third trimester; O99.284 Endocrine, nutritional and metabolic diseases complicating childbirth; E03.9 Hypothyroidism, unspecified; O70.9 Perineal laceration during delivery, unspecified
CPT/HCPCS: 36415; 36416; 51702; 84439; 84443; 84481; 85027; 86780; 86850; 86900; 86901; 87340; A4216; J3010; J3490; J7050

== ENCOUNTER 2018-09-20 20:54 | Emergency (ER) | payer SELFPAY | END 2018-09-20 22:11 | disposition home or self-care (01) | LOC: SCSER 20:54 | DX: L03.031 Cellulitis of right toe (principal); J45.909 Unspecified asthma, uncomplicated | CPT/HCPCS: 99283 ==

== ENCOUNTER 2023-09-25 15:23 | Outpatient (CLI) | payer OTHER | END 2023-09-25 15:24 | disposition home or self-care (01) | LOC: BICULT 15:23 | PROVIDERS: ATTEND Family Medicine | DX: O09.892 Supervision of other high risk pregnancies, second trimester (principal); Z3A.20 20 weeks gestation of pregnancy | CPT/HCPCS: 76805 ==